=== PATIENT | male | born 2000 | race Caucasian/White ===

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

== ENCOUNTER 2021-02-11 22:13 | Emergency (ER) | payer BC ==
[~2021-02-11] VITALS: Ht 175.3 cm; Wt 57.3 kg
== END 2021-02-11 23:58 | disposition home or self-care (01) ==
LOC: ED 22:13
DX: S63.601A Unspecified sprain of right thumb, initial encounter (principal); W22.8XXA Striking against or struck by other objects, initial encounter; F17.200 Nicotine dependence, unspecified, uncomplicated
CPT/HCPCS: 73140; 99283-25; A9270

== ENCOUNTER 2023-09-14 08:58 | Emergency (ER) | payer OTHER, BC ==
[~2023-09-14] VITALS: Ht 180.3 cm; Wt 58.7 kg
[2023-09-14] MEDS ORDERED: SKYRIZI PE150 MG/1 M (09:14)
[2023-09-14] MEDS ORDERED: BACTRIM DS TAB1 EACH PO (10:43)
[2023-09-14 10:52] VITALS: BP 112/73
== END 2023-09-14 10:53 | disposition home or self-care (01) ==
LOC: ED 08:58
DX: M70.42 Prepatellar bursitis, left knee (principal); X50.1XXA Overexertion from prolonged static or awkward postures, initial encounter; Z79.899 Other long term (current) drug therapy
CPT/HCPCS: 73560; 99283-25; A9270